=== PATIENT | male | born 2000 | race Two or more races ===

== ENCOUNTER 2020-08-29 11:59 | Emergency (ER) | payer SELFPAY ==
[~2020-08-29] VITALS: Ht 175.3 cm; Wt 90.7 kg
[2020-08-29 12:12] VITALS: BP 138/92
== END 2020-08-29 13:22 | disposition home or self-care (01) ==
LOC: ER 11:59
DX: U07.1 COVID-19 (principal); J40 Bronchitis, not specified as acute or chronic
CPT/HCPCS: 71045

== ENCOUNTER 2022-01-19 11:30 | Inpatient (IN) | payer MEDICAID, OTHER ==
[~2022-01-19] VITALS: Ht 175.3 cm; Wt 79.5 kg
[2022-01-19] MEDS ORDERED: SODIUM CHLORIDE 0.9% 1,000 ML IV ONE (13:15)
[2022-01-19] MEDS ORDERED: MORPHINE SULFATE 4 MG/ML SYR/VIAL IV ONE (13:45)
[2022-01-19] MEDS ORDERED: PIPERACILLIN-TAZOB 3.375GM 100 ML IV ONE (13:45)
[2022-01-19] MEDS ORDERED: ONDANSETRON HCL 4 MG/2 ML VIAL IV ONE (13:45)
[2022-01-19 13:59] LABS: Hematocrit 46.6 % (41.0-53.0); Hemoglobin 16.1 g/dL (13.5-17.5); Mean Corpuscular Hemoglobin 31.8 pg (28.0-32.0); Mean Corpuscular Hgb Conc. 34.5 g/dL (32.0-36.0); Mean Corpuscular Volume 92.3 fL (80.0-100.0); Red Blood Cells 5.05 10^6/uL (4.5-5.90); Red Cell Distribution Width 12.9 % (11.8-14.3); White Blood Cell 15.9 10^3/uL (4.4-10.8)
[2022-01-19 14:10] LABS: INR 1.1 (0.9-1.15)
[2022-01-19 14:19] LABS: BUN/Creatinine Ratio 7.1; Calcium 10.4 mg/dL (8.5-10.1); Potassium 3.7 mmol/L (3.5-5.1)
[2022-01-19 14:20] LABS: Band Neutrophils % (manual) 0; Basophils % (manual) 0 (0.0-2.0); Blast Cells 0; Metamyelocytes % 0; Myelocytes % 0; Promyelocytes % 0; Reactive Lymphocytes 0
[2022-01-19 14:27] LABS: Urine Bacteria NONE SEEN /hpf (None Seen); Urine Blood TRACE /uL (Negative); Urine Mucus FEW (None Seen); Urine Specific Gravity 1.016 (1.001-1.035); Urine WBC 1 /hpf (0 - 3)
[2022-01-19] MEDS ORDERED: metroNIDAZOLE 500MG/100ML 100 ML IV ONE ×2 (15:11→18:00)
[2022-01-19] MEDS ORDERED: BUPIVACAINE W/ EPINEPH 0.25% INJ 50ML MDV ONE (15:32)
[2022-01-19] MEDS ORDERED: fentaNYL CITRATE 5 ML ONE (15:33)
[2022-01-19] MEDS ORDERED: ROCURONIUM 10MG/ML 10ML VIAL IV ONE (15:33)
[2022-01-19] MEDS ORDERED: MIDAZOLAM HCL 2MG/2ML 2ml VIAL (1mg/ml) ONE (15:33)
[2022-01-19 16:43] LABS: Eosinophils % (manual) 1 (0-7); Lymphocytes % (manual) 13 (10.0-50.0); Monocytes % (manual) 8 (0-12)
[2022-01-19] MEDS ORDERED: ONDANSETRON HCL 4 MG/2 ML VIAL ONE (16:53)
[2022-01-19] MEDS ORDERED: LIDOCAINE 2% (LOCAL ANESTH.) PF 5ml SDV ONE (16:53)
[2022-01-19] MEDS ORDERED: PROPOFOL 10 MG/ML 20 ML IV ONE (16:53)
[2022-01-19] MEDS ORDERED: HYDROmorphone HCL 2 MG/ML VL/or syr IV PRN (17:00)
[2022-01-19] MEDS: ONDANSETRON HCL 4 MG/2 ML VIAL IV ONE ×2 (17:00→19:23)
[2022-01-19] MEDS ORDERED: ONDANSETRON HCL 4 MG/2 ML VIAL IV PRN ×2 (17:00→20:15)
[2022-01-19] MEDS ORDERED: GLYCOPYRROLATE 0.2 MG/ML 1ML VIAL ONE (17:09)
[2022-01-19] MEDS ORDERED: NEOSTIGMINE 1 MG/ML INJ (10mg/10ML VIAL) ONE (17:09)
[2022-01-19] MEDS: HYDROmorphone HCL 2 MG/ML VL/or syr IV PRN ×4 (17:15→18:58)
[2022-01-19] MEDS ORDERED: cefTRIAXone 1GM/50ML D5W 50 ML IV ONE (18:00)
[2022-01-19] MEDS ORDERED: PANTOPRAZOLE 40 MG/10 ML VIAL INJ IV ONE ×3 (18:00→20:15)
[2022-01-19] MEDS ORDERED: MORPHINE SULFATE INJ 2 MG/ml SYRG IV PRN ×2 (18:00→19:30)
[2022-01-19] MEDS ORDERED: NITROGLYCERIN 0.4 MG SL TAB SL PRN (19:30)
[2022-01-19] MEDS ORDERED: hydrALAZINE HCL 20 MG/ML VL IV PRN (20:15)
[2022-01-19] MEDS ORDERED: LORazepam 0.5 MG TAB PO PRN (20:15)
[2022-01-19 20:34] LABS: Magnesium 2.3 mg/dL (1.6-2.6); Phosphorus 2.5 mg/dL (2.5-4.90)
[2022-01-19] MEDS: MORPHINE SULFATE INJ 2 MG/ml SYRG IV PRN (20:53)
[2022-01-19] MEDS: DOCUSATE SOD 100 MG CAP PO PRN (20:53)
[2022-01-19 20:54] LABS: INR 1.12 (0.9-1.15)
[2022-01-19 22:00] VITALS: BP 130/80
[2022-01-20] MEDS: metroNIDAZOLE 500MG/100ML 100 ML IV SCH ×4 (01:13→22:15)
[2022-01-20] MEDS: HYDROcodone-ACET 5/325MG TAB PO PRN ×2 (04:49→22:20)
[2022-01-20 05:00] VITALS: BP 130/83
[2022-01-20] MEDS: D5W/SOD CHL 0.45%/KCL 20MEQ 1,000 ML IV SCH ×3 (05:34→14:00)
[2022-01-20 05:58] LABS: Basophils # (auto) 0 10 ^3/uL (0-0.2); Basophils % (auto) 0.1 % (0.0-2.0); Eosinophils # (auto) 0 10 ^3/uL (0-0.8); Hematocrit 40.9 % (41.0-53.0); Hemoglobin 14.6 g/dL (13.5-17.5); Lymphocytes # (auto) 1.5 10 ^3/uL (0.4-5.4); Lymphocytes % (auto) 9.7 % (10.0-50.0); Mean Corpuscular Hgb Conc. 35.7 g/dL (32.0-36.0); Mean Corpuscular Volume 92.6 fL (80.0-100.0); Monocytes # (auto) 1.3 10 ^3/uL (0-1.3); Monocytes % (auto) 8.6 % (0.0-12.0); Neutrophils # (auto) 12.4 10 ^3/uL (1.6-8.6); Neutrophils % (auto) 81.6 % (37.0-80.0); Nucleated Red Blood Cells % 0.1 %; Red Blood Cells 4.42 10^6/uL (4.5-5.90); Red Cell Distribution Width 12.7 % (11.8-14.3); White Blood Cell 15.2 10^3/uL (4.4-10.8)
[2022-01-20 06:14] LABS: INR 1.14 (0.9-1.15)
[2022-01-20 06:18] LABS: Albumin 3.2 g/dL (3.4-5.0); Calcium 9.1 mg/dL (8.5-10.1); Magnesium 2.1 mg/dL (1.6-2.6); Potassium 3.7 mmol/L (3.5-5.1); Uric Acid 5.4 mg/dL (3.5-7.2)
[2022-01-20 06:27] LABS: Bilirubin, Total 0.7 mg/dL (0.2-1.0); CRP High Sensitivity 11.3 mg/dL (< 0.3); Phosphorus 2.8 mg/dL (2.5-4.90); Total Protein 7.5 g/dL (6.4-8.2)
[2022-01-20 08:00] VITALS: BP 118/76
[2022-01-20] MEDS: cefTRIAXone 1GM/50ML D5W 50 ML IV SCH (09:23)
[2022-01-20] MEDS: PANTOPRAZOLE 40 MG/10 ML VIAL INJ IV SCH (09:23)
[2022-01-20] MEDS: ENOXAPARIN SOD 40 MG/0.4 ML SYRINGE SC SCH (09:23)
[2022-01-20] MEDS: DOCUSATE SOD 100 MG CAP PO PRN ×2 (09:23→22:19)
[2022-01-20] MEDS: MORPHINE SULFATE INJ 2 MG/ml SYRG IV PRN (09:35)
[2022-01-20 12:00] VITALS: BP 120/72
[2022-01-20 16:00] VITALS: BP 138/81
[2022-01-20] MEDS: ACETAMINOPHEN 325 MG TAB PO PRN (20:41)
[2022-01-20 22:30] VITALS: BP 117/70
[2022-01-21] MEDS: D5W/SOD CHL 0.45%/KCL 20MEQ 1,000 ML IV SCH ×3 (03:13→20:00)
[2022-01-21 05:04] VITALS: BP 131/71
[2022-01-21] MEDS: metroNIDAZOLE 500MG/100ML 100 ML IV SCH ×3 (05:51→22:35)
[2022-01-21 09:00] VITALS: BP 115/72
[2022-01-21] MEDS: cefTRIAXone 1GM/50ML D5W 50 ML IV SCH (09:56)
[2022-01-21] MEDS: ENOXAPARIN SOD 40 MG/0.4 ML SYRINGE SC SCH (10:03)
[2022-01-21] MEDS: PANTOPRAZOLE 40 MG/10 ML VIAL INJ IV SCH (10:05)
[2022-01-21 13:00] VITALS: BP_SYST 114; BP_SYST 150; BP_DIAS 67; BP_DIAS 71
[2022-01-21 17:00] VITALS: BP 119/76
[2022-01-21 22:00] VITALS: BP 128/75
[2022-01-21] MEDS: DOCUSATE SOD 100 MG CAP PO PRN (22:36)
[2022-01-21] MEDS: ACETAMINOPHEN 325 MG TAB PO PRN (22:46)
[2022-01-22] MEDS: HYDROcodone-ACET 5/325MG TAB PO PRN ×2 (02:50→09:56)
[2022-01-22 05:00] VITALS: BP 126/75
[2022-01-22] MEDS: D5W/SOD CHL 0.45%/KCL 20MEQ 1,000 ML IV SCH (05:50)
[2022-01-22] MEDS: metroNIDAZOLE 500MG/100ML 100 ML IV SCH (05:50)
[2022-01-22 07:08] LABS: Basophils # (auto) 0.1 10 ^3/uL (0-0.2); Basophils % (auto) 0.9 % (0.0-2.0); Eosinophils # (auto) 0.1 10 ^3/uL (0-0.8); Eosinophils % (auto) 0.8 % (0.0-7.0); Hematocrit 39.8 % (41.0-53.0); Hemoglobin 14.1 g/dL (13.5-17.5); Lymphocytes # (auto) 2.4 10 ^3/uL (0.4-5.4); Lymphocytes % (auto) 22.6 % (10.0-50.0); Mean Corpuscular Hemoglobin 32.5 pg (28.0-32.0); Mean Corpuscular Hgb Conc. 35.5 g/dL (32.0-36.0); Mean Corpuscular Volume 91.6 fL (80.0-100.0); Monocytes # (auto) 1.4 10 ^3/uL (0-1.3); Monocytes % (auto) 13.2 % (0.0-12.0); Neutrophils # (auto) 6.6 10 ^3/uL (1.6-8.6); Neutrophils % (auto) 62.5 % (37.0-80.0); Nucleated Red Blood Cells % 0.1 %; Red Blood Cells 4.34 10^6/uL (4.5-5.90); Red Cell Distribution Width 12.6 % (11.8-14.3); White Blood Cell 10.5 10^3/uL (4.4-10.8)
[2022-01-22 09:00] VITALS: BP 127/74
[2022-01-22] MEDS: cefTRIAXone 1GM/50ML D5W 50 ML IV SCH (09:00)
[2022-01-22] MEDS ORDERED: LEVO500T31 PO (09:38)
[2022-01-22] MEDS ORDERED: HYDR-4902 PO (09:38)
[2022-01-22] MEDS ORDERED: METR500T PO (09:38)
[2022-01-22] MEDS: PANTOPRAZOLE 40 MG/10 ML VIAL INJ IV SCH (09:43)
[2022-01-22] MEDS: ENOXAPARIN SOD 40 MG/0.4 ML SYRINGE SC SCH (09:45)
== END 2022-01-22 11:35 | disposition home or self-care (01) | DRG 710 ==
LOC: ER 11:30 → CENTRAL 19:29
PROVIDERS: ADMIT Hospitalist; ATTEND Family Medicine
PROC: 0WJG4ZZ Inspection of Peritoneal Cavity, Percutaneous Endoscopic Approach (ICD-10-PCS; 2022-01-19)
PROC: 0DTJ0ZZ Resection of Appendix, Open Approach (ICD-10-PCS; principal; 2022-01-19 15:35)
DX: A41.9 Sepsis, unspecified organism (principal); K35.33 Acute appendicitis with perforation, localized peritonitis, and gangrene, with abscess; E86.0 Dehydration; B17.9 Acute viral hepatitis, unspecified; K59.00 Constipation, unspecified; Z53.31 Laparoscopic surgical procedure converted to open procedure; Z86.16 Personal history of COVID-19; Z87.01 Personal history of pneumonia (recurrent)
CPT/HCPCS: 36415; 74176; 80048; 80053; 80061; 81001; 82550; 82728; 83036; 83605; 83615; 83690; 83735; 83880; 84100; 84443; 84484; 84550; 85007; 85025; 85027; 85379; 85610; 85652; 85730; 86141; 86850; 86900; 86901; 87040; 87086; 96365; 96375; C9113; G0378; J0696; J2001; J2250; J2405; J2543; J2704; J3490